=== PATIENT | male | born 1950 ===

== ENCOUNTER 2018-07-27 07:15 | Day surgery (SDC) | payer MEDICARE ==
[2018-07-27 08:09] VITALS: BMI 30.7
[2018-07-27] MEDS ORDERED: Gentamicin 80 mg in 0.9% NS 80 MG/100 ML BAG IVPB ONE (09:34)
[2018-07-27] MEDS ORDERED: Ciprofloxacin 400mg/200ml D5W 400 MG/200 ML BAG IVPB ONE (09:34)
[2018-07-27] MEDS ORDERED: Midazolam 2 MG/2 ML VIAL ONE (09:39)
[2018-07-27] MEDS ORDERED: Propofol 10 mg/ml Inj (20 ML) ONE (09:39)
[2018-07-27] MEDS ORDERED: HYDROmorphone 0.5 mg/0.5 ml ISec IVP PRN (11:26)
[2018-07-27 12:56] VITALS: PULSE 55; RESP 18; O2SAT 95
[2018-07-27 13:23] VITALS: BP 122/78; TEMP 97.6
--- NOTE | 2018-07-27 23:04 | OP ---
PROCEDURE DATE: 07/27/2018 PREOPERATIVE DIAGNOSIS: Benign prostatic hypertrophy. POSTOPERATIVE DIAGNOSIS: Benign prostatic hypertrophy. PROCEDURE PERFORMED: GreenLight Laser of the prostate. SURGEON: Marvin Mcgee MD DESCRIPTION OF PROCEDURE: The patient was placed on the operating room table in a dorsal lithotomy position and was given general anesthesia. The area of the groin was draped and prepped in a sterile manner. At this time under direct vision, I advanced the laser scope to the bladder visualizing the prostate along the way. The adenoma was identified. At this time using the laser, I demarcated the distal portion of the resection and then began to resect the middle lobe followed by the left and right lateral lobes. Using maximum of about 120 huerta of power total joules delivered was about 450,000. There was minimal bleeding during the procedure I estimate probably less than 20 cc. At the end of the procedure, there was a wide opening from a circumstantially intact verumontanum into the bladder. I removed the working resectoscope and then inserted #22 three-way Ballesteros catheter. The initial outflow was visually clear. The patient was taken from the operating room in good condition. Marvin Mcgee MD
== END 2018-07-27 13:30 | disposition home or self-care (01) ==
LOC: C.SDS 07:15
PROVIDERS: ATTEND Urology
DX: N40.1 Benign prostatic hyperplasia with lower urinary tract symptoms (principal)
CPT/HCPCS: 52648; A4358; J0744; J1170; J1580